=== PATIENT | male | born 1980 | race Caucasian/White ===

== ENCOUNTER 2017-02-24 21:22 | Inpatient (IN) | payer MEDICAID ==
[~2017-02-24] VITALS: Ht 182.9 cm; Wt 96.5 kg
[2017-02-24 22:07] VITALS: BP 134/76
[2017-02-24] MEDS ORDERED: ZOLPIDEM TARTRATE 10 MG TABLET PO PRN (22:15)
[2017-02-24] MEDS ORDERED: LORazepam 2 MG TABLET PO PRN (22:15)
[2017-02-24] MEDS ORDERED: HALOPERIDOL 5 MG TABLET PO PRN (22:15)
[2017-02-24] MEDS ORDERED: ZIPR40CA2 PO (23:49)
[2017-02-25 00:58] LABS: BASOPHILS % (AUTO) 0.4 % (0.0-2.0); EOSINOPHILS % (AUTO) 6.6 % (1.0-6.0); HEMATOCRIT 41.8 % (41-53); HEMOGLOBIN 13.5 g/dL (13.5-17.5); LYMPHOCYTES % (AUTO) 36.8 % (22.0-44.0); MEAN CORPUSCULAR HEMOGLOBIN 28.4 pg (26.0-34.0); MEAN CORPUSCULAR HGB CONC 32.4 G/dL (31.0-37.0); MEAN CORPUSCULAR VOLUME 88 fL (80-100); MONOCYTES # (AUTO) 0.7 K/uL (0.1-1.0); MONOCYTES % (AUTO) 8.5 % (2.0-9.0); NEUTROPHILS # (AUTO) 3.9 K/uL (1.8-7.7); NEUTROPHILS % (AUTO) 47.7 % (40.0-70.0); PLATELET COUNT (AUTO) 328 K/uL (150-450); RED BLOOD CELL COUNT(AUTO) 4.77 MIL/uL (4.50-5.90); RED CELL DISTRIBUTION WIDTH 14.2 % (11.5-14.5); WHITE BLOOD COUNT (AUTO) 8.3 K/uL (4.5-11.0)
[2017-02-25 01:05] LABS: ANION GAP 6 mmol/L (8-16); CALCIUM, TOTAL 8.5 mg/dL (8.8-10.5); CARBON DIOXIDE 27 mmol/L (22-29); CHLORIDE 107 mmol/L (98-107); CREATININE 0.75 mg/dL (0.60-1.30); GLOMERULAR FILTR. RATE CALC > 60 mL/min (>60); SODIUM SERUM 140 mmol/L (136-145); UREA NITROGEN, BLOOD 18 mg/dL (7-18)
[2017-02-25 01:11] LABS: ALANINE AMINOTRANSFERASE 32 U/L (12-78); ALBUMIN 3.2 g/dL (3.4-5.0); ASPARTATE AMINOTRANSFERASE 13 U/L (15-37); BILIRUBIN,TOTAL 0.3 mg/dL (0.1-1.0); TOTAL PROTEIN, SERUM 7.2 g/dL (6.4-8.2)
[2017-02-25 01:16] LABS: GLUCOSE COMMENT 1 Doctor Notified; GLUCOSE,POINT OF CARE 78 MG/DL (70-110)
[2017-02-25] MEDS ORDERED: PERMETHRIN 5% 60 GM CREAM TP ONE (01:45)
[2017-02-25 03:33] VITALS: BP 131/78
[2017-02-25 06:26] LABS: ALANINE AMINOTRANSFERASE 29 U/L (12-78); ALBUMIN 3.1 g/dL (3.4-5.0); ANION GAP 6 mmol/L (8-16); ASPARTATE AMINOTRANSFERASE 12 U/L (15-37); BILIRUBIN,TOTAL 0.2 mg/dL (0.1-1.0); CALCIUM, TOTAL 8.2 mg/dL (8.8-10.5); CARBON DIOXIDE 27 mmol/L (22-29); CHLORIDE 107 mmol/L (98-107); CREATININE 0.89 mg/dL (0.60-1.30); GLOMERULAR FILTR. RATE CALC > 60 mL/min (>60); POTASSIUM 3.8 mmol/L (3.5-5.1); SODIUM SERUM 140 mmol/L (136-145); TOTAL PROTEIN, SERUM 6.8 g/dL (6.4-8.2); UREA NITROGEN, BLOOD 17 mg/dL (7-18)
[2017-02-25 07:13] LABS: BASOPHILS # (AUTO) 0.03 K/uL (0.00-0.20); BASOPHILS % (AUTO) 0.4 % (0.0-2.0); EOSINOPHILS # (AUTO) 0.71 K/uL (0.00-0.70); EOSINOPHILS % (AUTO) 9.51 % (1.0-6.0); HEMATOCRIT 41.4 % (41-53); HEMOGLOBIN 13.7 g/dL (13.5-17.5); LYMPHOCYTES # (AUTO) 2.9 K/uL (1.0-4.8); LYMPHOCYTES % (AUTO) 38.4 % (22.0-44.0); MEAN CORPUSCULAR HEMOGLOBIN 29.1 pg (26.0-34.0); MEAN CORPUSCULAR VOLUME 88 fL (80-100); MONOCYTES # (AUTO) 0.7 K/uL (0.1-1.0); MONOCYTES % (AUTO) 9.4 % (2.0-9.0); NEUTROPHILS # (AUTO) 3.2 K/uL (1.8-7.7); NEUTROPHILS % (AUTO) 42.3 % (40.0-70.0); PLATELET COUNT (AUTO) 301 K/uL (150-450); RED BLOOD CELL COUNT(AUTO) 4.71 MIL/uL (4.50-5.90); RED CELL DISTRIBUTION WIDTH 14.6 % (11.5-14.5); WHITE BLOOD COUNT (AUTO) 7.5 K/uL (4.5-11.0)
[2017-02-25] MEDS: ZIPRASIDONE HCL 20 MG CAPSULE PO SCH ×2 (07:59→16:56)
[2017-02-25 09:19] VITALS: BP 127/60
[2017-02-25 17:08] VITALS: BP 102/58
[2017-02-26] MEDS: ZIPRASIDONE HCL 20 MG CAPSULE PO SCH ×2 (06:43→17:41)
[2017-02-26 08:00] VITALS: BP 113/71
[2017-02-26] MEDS ORDERED: ACETAMINOPHEN 325 MG TABLET PO PRN (12:15)
[2017-02-26] MEDS ORDERED: IBUPROFEN 600 MG TABLET PO PRN (12:15)
[2017-02-26] MEDS ORDERED: IBUPROFEN 400 MG TABLET PO PRN (12:30)
[2017-02-26] MEDS: ACETAMINOPHEN 325 MG TABLET PO PRN (14:23)
[2017-02-26 16:34] VITALS: BP 109/65
[2017-02-27] MEDS: ZIPRASIDONE HCL 20 MG CAPSULE PO SCH (06:31)
[2017-02-27 08:00] VITALS: BP 116/60
[2017-02-27] MEDS: ACETAMINOPHEN 325 MG TABLET PO PRN (09:31)
== END 2017-02-27 15:30 | disposition home or self-care (01) | DRG 750 ==
LOC: EDSTATUS 22:41 → BV PSY EVL 23:34 → 3EI 02-25 02:36
DX: F25.1 Schizoaffective disorder, depressive type (principal); R45.851 Suicidal ideations; Z59.0 Homelessness; F15.10 Other stimulant abuse, uncomplicated; M10.9 Gout, unspecified; B86 Scabies; F17.210 Nicotine dependence, cigarettes, uncomplicated; F12.90 Cannabis use, unspecified, uncomplicated; Z91.5 Personal history of self-harm; Z88.8 Allergy status to other drugs, medicaments and biological substances
CPT/HCPCS: 82962; 99285; G0480

== ENCOUNTER 2017-08-03 21:06 | Inpatient (IN) | payer MEDICAID ==
[~2017-08-03] VITALS: Ht 182.9 cm; Wt 88.0 kg
[~2017-08-03 21:06] MED LIST: ZIPR40CA2 PO
[2017-08-03 21:32] LABS: BASOPHILS % (AUTO) 0.6 % (0.0-2.0); EOSINOPHILS % (AUTO) 2.2 % (1.0-6.0); HEMATOCRIT 40.6 % (41-53); HEMOGLOBIN 13.9 g/dL (13.5-17.5); LYMPHOCYTES # (AUTO) 2.8 K/uL (1.0-4.8); LYMPHOCYTES % (AUTO) 32.3 % (22.0-44.0); MEAN CORPUSCULAR HEMOGLOBIN 30.4 pg (26.0-34.0); MEAN CORPUSCULAR HGB CONC 34.3 G/dL (31.0-37.0); MEAN CORPUSCULAR VOLUME 89 fL (80-100); MONOCYTES # (AUTO) 0.8 K/uL (0.1-1.0); MONOCYTES % (AUTO) 9.2 % (2.0-9.0); NEUTROPHILS # (AUTO) 4.8 K/uL (1.8-7.7); NEUTROPHILS % (AUTO) 55.7 % (40.0-70.0); PLATELET COUNT (AUTO) 366 K/uL (150-450); RED BLOOD CELL COUNT(AUTO) 4.57 MIL/uL (4.50-5.90); WHITE BLOOD COUNT (AUTO) 8.6 K/uL (4.5-11.0)
[2017-08-03 21:35] LABS: ANION GAP 6 mmol/L (8-16); CALCIUM, TOTAL 8.5 mg/dL (8.8-10.5); CARBON DIOXIDE 29 mmol/L (22-29); CHLORIDE 104 mmol/L (98-107); GLOMERULAR FILTR. RATE CALC > 60 mL/min (>60); POTASSIUM 3.7 mmol/L (3.5-5.1); SODIUM SERUM 139 mmol/L (136-145); UREA NITROGEN, BLOOD 15 mg/dL (7-18)
[2017-08-03 21:43] LABS: ALANINE AMINOTRANSFERASE 87 U/L (12-78); ALBUMIN 3.4 g/dL (3.4-5.0); ASPARTATE AMINOTRANSFERASE 40 U/L (15-37); BILIRUBIN,TOTAL 0.6 mg/dL (0.1-1.0); TOTAL PROTEIN, SERUM 8.4 g/dL (6.4-8.2)
[2017-08-03] MEDS ORDERED: ZOLPIDEM TARTRATE 10 MG TABLET PO PRN (21:45)
[2017-08-03] MEDS ORDERED: HALOPERIDOL 5 MG TABLET PO PRN (21:45)
[2017-08-04 01:35] LABS: APPEARANCE,URINE CLOUDY (CLEAR); GLUCOSE, URINE (UA) NEGATIVE (NEGATIVE); KETONES,URINE TRACE mg/dL (NEGATIVE); LEUKOCYTE ESTERASE ,URINE NEGATIVE (NEGATIVE); OCCULT BLOOD,URINE NEGATIVE (NEGATIVE); PROTEIN,URINE NEGATIVE (NEGATIVE)
[2017-08-04 01:37] LABS: ADD UA MICROSCOPIC NO
[2017-08-04 02:18] VITALS: BP 119/54
[2017-08-04 02:25] VITALS: BP 119/54
[2017-08-04] MEDS ORDERED: PNEUMOCOCCAL VACCINE POLYVALENT 0.5 ML VIAL [PPSV23] IM ONE (04:30)
[2017-08-04 08:30] VITALS: BP 88/63
[2017-08-04 17:04] VITALS: BP 120/71
[2017-08-04] MEDS: CarBAMazepine 200 MG TABLET PO SCH (17:30)
[2017-08-04] MEDS: ZIPRASIDONE HCL 20 MG CAPSULE PO SCH (18:30)
[2017-08-05] MEDS: ZIPRASIDONE HCL 20 MG CAPSULE PO SCH ×2 (06:43→16:35)
[2017-08-05 08:48] VITALS: BP 116/74
[2017-08-05] MEDS: CarBAMazepine 200 MG TABLET PO SCH ×2 (10:20→16:35)
[2017-08-05] MEDS ORDERED: ACETAMINOPHEN 500 MG TABLET PO PRN (12:00)
[2017-08-05 12:56] VITALS: BP 121/65
[2017-08-05 15:04] VITALS: BP 112/64
[2017-08-05] MEDS: IBUPROFEN 600 MG TABLET PO PRN (15:04)
[2017-08-05] MEDS: LORazepam 2 MG TABLET PO PRN (16:34)
[2017-08-05 20:11] VITALS: BP 121/72
[2017-08-06] MEDS: ZIPRASIDONE HCL 20 MG CAPSULE PO SCH ×2 (06:55→16:56)
[2017-08-06] MEDS: CarBAMazepine 200 MG TABLET PO SCH ×2 (08:37→16:56)
[2017-08-06 09:26] VITALS: BP 131/77
[2017-08-06 12:08] VITALS: BP 115/78
[2017-08-06] MEDS: IBUPROFEN 600 MG TABLET PO PRN (12:08)
[2017-08-06 17:09] VITALS: BP 108/60
[2017-08-07 02:20] VITALS: BP 121/66
[2017-08-07] MEDS: ZIPRASIDONE HCL 20 MG CAPSULE PO SCH ×2 (06:41→17:41)
[2017-08-07 07:40] LABS: CHOL/HDL RATIO 4.2 (4.2-7.3); CREATINE KINASE, TOTAL 41 U/L (39-308); THYROID STIMULATING HORMONE 1.13 uIU/mL (0.36-3.74)
[2017-08-07 08:35] LABS: HEMOGLOBIN A1C 4.7 % (4.5-6.2)
[2017-08-07] MEDS: CarBAMazepine 200 MG TABLET PO SCH ×2 (09:30→15:57)
[2017-08-07 09:50] VITALS: BP 127/59
[2017-08-07] MEDS: IBUPROFEN 600 MG TABLET PO PRN (14:21)
[2017-08-07 16:15] VITALS: BP 117/73
[2017-08-07] MEDS: LORazepam 2 MG TABLET PO PRN (20:12)
[2017-08-08 04:19] LABS: HEPATITIS Bs ANTIGEN SCREEN P Negative (Negative); HEPATITIS C AB SCREEN 0.2 s/co ratio (0.0-0.9)
[2017-08-08] MEDS: ZIPRASIDONE HCL 20 MG CAPSULE PO SCH (06:50)
[2017-08-08 08:50] VITALS: BP 117/58
[2017-08-08] MEDS: CarBAMazepine 200 MG TABLET PO SCH (09:33)
[2017-08-08] MEDS ORDERED: CARB200T6 PO (10:54)
== END 2017-08-08 15:45 | disposition home or self-care (01) | DRG 750 ==
LOC: EMS 21:07 → 3EI 08-04 00:04 → EMS 08-04 00:06 → 3EI 08-05 16:47
PROVIDERS: ADMIT Psychiatry & Neurology Child & Adolescent Psychiatry; ATTEND Psychiatry & Neurology Child & Adolescent Psychiatry
DX: F25.1 Schizoaffective disorder, depressive type (principal); E11.65 Type 2 diabetes mellitus with hyperglycemia; R45.851 Suicidal ideations; I10 Essential (primary) hypertension; B19.20 Unspecified viral hepatitis C without hepatic coma; F41.9 Anxiety disorder, unspecified; F12.90 Cannabis use, unspecified, uncomplicated; F17.210 Nicotine dependence, cigarettes, uncomplicated; F15.90 Other stimulant use, unspecified, uncomplicated; K02.9 Dental caries, unspecified; M10.9 Gout, unspecified; Z59.0 Homelessness; Z88.8 Allergy status to other drugs, medicaments and biological substances; Z91.19 Patient's noncompliance with other medical treatment and regimen; Z71.6 Tobacco abuse counseling; Z71.51 Drug abuse counseling and surveillance of drug abuser
CPT/HCPCS: 80074; 82306; 82607; 82746; 83036; 84439; 84443; 99285; G0480

== ENCOUNTER 2017-09-01 02:14 | Inpatient (IN) | payer MEDICAID ==
[~2017-09-01] VITALS: Ht 182.9 cm; Wt 88.7 kg
[~2017-09-01 02:14] MED LIST changes: +CARB200T6 PO
[2017-09-01 02:51] LABS: BASOPHILS # (AUTO) 0.04 K/uL (0.00-0.20); BASOPHILS % (AUTO) 0.5 % (0.0-2.0); EOSINOPHILS # (AUTO) 0.21 K/uL (0.00-0.70); EOSINOPHILS % (AUTO) 2.73 % (1.0-6.0); HEMATOCRIT 42.5 % (41-53); HEMOGLOBIN 14.2 g/dL (13.5-17.5); LYMPHOCYTES % (AUTO) 38.6 % (22.0-44.0); MEAN CORPUSCULAR HEMOGLOBIN 30.2 pg (26.0-34.0); MEAN CORPUSCULAR HGB CONC 33.3 G/dL (31.0-37.0); MEAN CORPUSCULAR VOLUME 91 fL (80-100); MONOCYTES # (AUTO) 0.5 K/uL (0.1-1.0); MONOCYTES % (AUTO) 5.9 % (2.0-9.0); NEUTROPHILS # (AUTO) 4.1 K/uL (1.8-7.7); NEUTROPHILS % (AUTO) 52.4 % (40.0-70.0); PLATELET COUNT (AUTO) 346 K/uL (150-450); RED BLOOD CELL COUNT(AUTO) 4.69 MIL/uL (4.50-5.90); RED CELL DISTRIBUTION WIDTH 15.3 % (11.5-14.5); WHITE BLOOD COUNT (AUTO) 7.8 K/uL (4.5-11.0)
[2017-09-01 02:57] LABS: ANION GAP 2 mmol/L (8-16); CALCIUM, TOTAL 8.5 mg/dL (8.8-10.5); CARBON DIOXIDE 33 mmol/L (22-29); CHLORIDE 102 mmol/L (98-107); CREATININE 0.76 mg/dL (0.60-1.30); GLOMERULAR FILTR. RATE CALC > 60 mL/min (>60); POTASSIUM 4.7 mmol/L (3.5-5.1); SODIUM SERUM 137 mmol/L (136-145); UREA NITROGEN, BLOOD 12 mg/dL (7-18)
[2017-09-01 03:03] LABS: ALANINE AMINOTRANSFERASE 50 U/L (12-78); ALBUMIN 3.1 g/dL (3.4-5.0); ASPARTATE AMINOTRANSFERASE 32 U/L (15-37); BILIRUBIN,TOTAL 0.3 mg/dL (0.1-1.0); TOTAL PROTEIN, SERUM 7.6 g/dL (6.4-8.2)
[2017-09-01] MEDS ORDERED: HALOPERIDOL 5 MG TABLET PO PRN (05:15)
[2017-09-01] MEDS ORDERED: LORazepam 2 MG TABLET PO PRN (05:15)
[2017-09-01] MEDS ORDERED: ZOLPIDEM TARTRATE 10 MG TABLET PO PRN (05:15)
[2017-09-01 06:08] LABS: APPEARANCE,URINE CLOUDY (CLEAR); GLUCOSE, URINE (UA) NEGATIVE (NEGATIVE); KETONES,URINE NEGATIVE (NEGATIVE); LEUKOCYTE ESTERASE ,URINE NEGATIVE (NEGATIVE); OCCULT BLOOD,URINE NEGATIVE (NEGATIVE); PROTEIN,URINE NEGATIVE (NEGATIVE)
[2017-09-01 06:09] LABS: ADD UA MICROSCOPIC NO
[2017-09-01 07:02] VITALS: BP 135/74
[2017-09-01 08:18] VITALS: BP 123/66
[2017-09-01] MEDS: NICOTINE 14 MG/24 HOUR PATCH TD SCH (09:20)
[2017-09-01 16:32] VITALS: BP 124/78
[2017-09-01] MEDS: CarBAMazepine 200 MG TABLET PO SCH (17:21)
[2017-09-01] MEDS: ZIPRASIDONE HCL 20 MG CAPSULE PO SCH (17:21)
[2017-09-02 02:53] VITALS: BP 141/97
[2017-09-02 06:53] LABS: BASOPHILS % (AUTO) 0.4 % (0.0-2.0); EOSINOPHILS % (AUTO) 2.1 % (1.0-6.0); HEMATOCRIT 42.7 % (41-53); HEMOGLOBIN 14.4 g/dL (13.5-17.5); LYMPHOCYTES # (AUTO) 2.1 K/uL (1.0-4.8); LYMPHOCYTES % (AUTO) 28.8 % (22.0-44.0); MEAN CORPUSCULAR HEMOGLOBIN 30.4 pg (26.0-34.0); MEAN CORPUSCULAR HGB CONC 33.8 G/dL (31.0-37.0); MEAN CORPUSCULAR VOLUME 90 fL (80-100); MONOCYTES # (AUTO) 0.5 K/uL (0.1-1.0); MONOCYTES % (AUTO) 6.8 % (2.0-9.0); NEUTROPHILS # (AUTO) 4.6 K/uL (1.8-7.7); NEUTROPHILS % (AUTO) 61.9 % (40.0-70.0); PLATELET COUNT (AUTO) 329 K/uL (150-450); RED BLOOD CELL COUNT(AUTO) 4.73 MIL/uL (4.50-5.90); RED CELL DISTRIBUTION WIDTH 15.1 % (11.5-14.5); WHITE BLOOD COUNT (AUTO) 7.4 K/uL (4.5-11.0)
[2017-09-02] MEDS: ZIPRASIDONE HCL 20 MG CAPSULE PO SCH (07:11)
[2017-09-02 07:28] LABS: ALANINE AMINOTRANSFERASE 56 U/L (12-78); ALBUMIN 3.1 g/dL (3.4-5.0); ANION GAP 5 mmol/L (8-16); ASPARTATE AMINOTRANSFERASE 28 U/L (15-37); BILIRUBIN,TOTAL 0.4 mg/dL (0.1-1.0); CALCIUM, TOTAL 8.6 mg/dL (8.8-10.5); CARBON DIOXIDE 31 mmol/L (22-29); CHLORIDE 102 mmol/L (98-107); CREATININE 0.77 mg/dL (0.60-1.30); GLOMERULAR FILTR. RATE CALC > 60 mL/min (>60); POTASSIUM 4.4 mmol/L (3.5-5.1); SODIUM SERUM 138 mmol/L (136-145); TOTAL PROTEIN, SERUM 7.1 g/dL (6.4-8.2); UREA NITROGEN, BLOOD 10 mg/dL (7-18)
[2017-09-02 08:00] VITALS: BP 111/71
[2017-09-02] MEDS: CarBAMazepine 200 MG TABLET PO SCH (09:41)
[2017-09-02] MEDS: NICOTINE 14 MG/24 HOUR PATCH TD SCH (09:41)
[2017-09-02 16:23] VITALS: BP 115/79
[2017-09-02] MEDS ORDERED: ZIPR20CA2 PO (16:43)
[2017-09-02] MEDS ORDERED: CARB200T6 PO (16:44)
== END 2017-09-02 17:10 | disposition home or self-care (01) | DRG 750 ==
LOC: EMS 02:15 → 3EI 05:15
PROVIDERS: ADMIT Psychiatry & Neurology Child & Adolescent Psychiatry; ATTEND Psychiatry & Neurology Child & Adolescent Psychiatry
DX: F25.1 Schizoaffective disorder, depressive type (principal); R45.851 Suicidal ideations; Z91.14 Patient's other noncompliance with medication regimen; I10 Essential (primary) hypertension; F31.9 Bipolar disorder, unspecified; F41.9 Anxiety disorder, unspecified; M10.9 Gout, unspecified; F17.210 Nicotine dependence, cigarettes, uncomplicated; F12.90 Cannabis use, unspecified, uncomplicated; B19.20 Unspecified viral hepatitis C without hepatic coma; R21 Rash and other nonspecific skin eruption; R73.03 Prediabetes; B15.9 Hepatitis A without hepatic coma; Z79.899 Other long term (current) drug therapy; Z88.8 Allergy status to other drugs, medicaments and biological substances
CPT/HCPCS: 84439; 84443; 87081; 99285; G0480

== ENCOUNTER 2017-10-10 22:43 | Inpatient (IN) | payer MEDICAID ==
[~2017-10-10] VITALS: Ht 175.3 cm; Wt 86.6 kg
[~2017-10-10 22:43] MED LIST changes: +ZIPR20CA2 PO; -ZIPR40CA2 PO
[2017-10-10 23:00] LABS: BASOPHILS # (AUTO) 0.04 K/uL (0.00-0.20); BASOPHILS % (AUTO) 0.5 % (0.0-2.0); EOSINOPHILS # (AUTO) 0.19 K/uL (0.00-0.70); EOSINOPHILS % (AUTO) 2.24 % (1.0-6.0); HEMATOCRIT 42.5 % (41-53); HEMOGLOBIN 14.1 g/dL (13.5-17.5); LYMPHOCYTES # (AUTO) 3.3 K/uL (1.0-4.8); LYMPHOCYTES % (AUTO) 40.1 % (22.0-44.0); MEAN CORPUSCULAR HEMOGLOBIN 30.3 pg (26.0-34.0); MEAN CORPUSCULAR HGB CONC 33.3 G/dL (31.0-37.0); MEAN CORPUSCULAR VOLUME 91 fL (80-100); MONOCYTES # (AUTO) 0.5 K/uL (0.1-1.0); MONOCYTES % (AUTO) 6.3 % (2.0-9.0); NEUTROPHILS # (AUTO) 4.2 K/uL (1.8-7.7); NEUTROPHILS % (AUTO) 50.9 % (40.0-70.0); PLATELET COUNT (AUTO) 377 K/uL (150-450); RED BLOOD CELL COUNT(AUTO) 4.67 MIL/uL (4.50-5.90); RED CELL DISTRIBUTION WIDTH 14.1 % (11.5-14.5); WHITE BLOOD COUNT (AUTO) 8.3 K/uL (4.5-11.0)
[2017-10-10 23:02] LABS: GLUCOSE COMMENT 2 Doctor Notified; GLUCOSE,POINT OF CARE 67 MG/DL (70-110)
[2017-10-10 23:14] LABS: ANION GAP 5 mmol/L (8-16); CALCIUM, TOTAL 8.8 mg/dL (8.8-10.5); CARBON DIOXIDE 31 mmol/L (22-29); CHLORIDE 102 mmol/L (98-107); CREATININE 1.03 mg/dL (0.60-1.30); GLOMERULAR FILTR. RATE CALC > 60 mL/min (>60); POTASSIUM 4.4 mmol/L (3.5-5.1); SODIUM SERUM 138 mmol/L (136-145); UREA NITROGEN, BLOOD 18 mg/dL (7-18)
[2017-10-10 23:30] LABS: ALANINE AMINOTRANSFERASE 30 U/L (12-78); ALBUMIN 3.5 g/dL (3.4-5.0); ASPARTATE AMINOTRANSFERASE 14 U/L (15-37); BILIRUBIN,TOTAL 0.2 mg/dL (0.1-1.0); TOTAL PROTEIN, SERUM 7.9 g/dL (6.4-8.2)
[2017-10-11] MEDS ORDERED: ZOLPIDEM TARTRATE 10 MG TABLET PO PRN (00:15)
[2017-10-11] MEDS ORDERED: HALOPERIDOL 5 MG TABLET PO PRN (00:15)
[2017-10-11 02:17] LABS: GLUCOSE,POINT OF CARE 122 MG/DL (70-110)
[2017-10-11] MEDS ORDERED: PNEUMOCOCCAL VACCINE POLYVALENT 0.5 ML VIAL [PPSV23] IM ONE (15:00)
[2017-10-11 15:10] LABS: APPEARANCE,URINE CLEAR (CLEAR); GLUCOSE, URINE (UA) NEGATIVE (NEGATIVE); KETONES,URINE NEGATIVE (NEGATIVE); LEUKOCYTE ESTERASE ,URINE NEGATIVE (NEGATIVE); OCCULT BLOOD,URINE NEGATIVE (NEGATIVE); PH,URINE 7.5 (5.0-8.0); PROTEIN,URINE NEGATIVE (NEGATIVE)
[2017-10-11 15:12] LABS: ADD UA MICROSCOPIC NO
[2017-10-11] MEDS: NICOTINE 14 MG/24 HOUR PATCH TD SCH (16:44)
[2017-10-11] MEDS ORDERED: DEXTROSE 50%-WATER 25 GM/50 ML SYG IVP PRN (17:00)
[2017-10-11] MEDS ORDERED: INSULIN ASPART 100 UNITS/ML SQ PRN (17:00)
[2017-10-11 17:32] LABS: GLUCOSE,POINT OF CARE 72 MG/DL (70-110)
[2017-10-11 18:51] VITALS: BP 115/57
[2017-10-12 06:07] LABS: GLUCOSE,POINT OF CARE 110 MG/DL (70-110)
[2017-10-12 07:11] LABS: HEMOGLOBIN A1C 5.3 % (4.5-6.2)
[2017-10-12 07:19] LABS: CHOL/HDL RATIO 3.6 (4.2-7.3)
[2017-10-12 08:00] VITALS: BP 125/77
[2017-10-12] MEDS: NICOTINE 14 MG/24 HOUR PATCH TD SCH (09:00)
[2017-10-12] MEDS: ZIPRASIDONE HCL 20 MG CAPSULE PO SCH (16:52)
[2017-10-12] MEDS: CarBAMazepine 200 MG TABLET PO SCH (16:52)
[2017-10-12] MEDS: LORazepam 2 MG TABLET PO PRN (18:32)
[2017-10-13] MEDS: ZIPRASIDONE HCL 20 MG CAPSULE PO SCH ×2 (06:58→16:25)
[2017-10-13 08:41] VITALS: BP 121/77
[2017-10-13] MEDS: NICOTINE 14 MG/24 HOUR PATCH TD SCH (09:00)
[2017-10-13] MEDS: CarBAMazepine 200 MG TABLET PO SCH ×3 (09:00→16:27)
[2017-10-13 17:26] VITALS: BP 144/76
[2017-10-14] MEDS: ZIPRASIDONE HCL 20 MG CAPSULE PO SCH ×2 (06:38→17:28)
[2017-10-14 08:46] VITALS: BP 140/90
[2017-10-14] MEDS: NICOTINE 14 MG/24 HOUR PATCH TD SCH (09:00)
[2017-10-14] MEDS: CarBAMazepine 200 MG TABLET PO SCH ×2 (09:09→17:28)
[2017-10-14 17:08] VITALS: BP 113/88
[2017-10-15] MEDS: ZIPRASIDONE HCL 20 MG CAPSULE PO SCH ×2 (07:17→17:15)
[2017-10-15 08:15] VITALS: BP 133/67
[2017-10-15] MEDS: NICOTINE 14 MG/24 HOUR PATCH TD SCH (09:00)
[2017-10-15] MEDS: CarBAMazepine 200 MG TABLET PO SCH ×2 (09:50→17:15)
[2017-10-15] MEDS: LORazepam 2 MG TABLET PO PRN (14:07)
[2017-10-15 16:50] VITALS: BP 129/67
[2017-10-15 17:00] VITALS: BP 127/68
[2017-10-16] MEDS: LORazepam 2 MG TABLET PO PRN (06:58)
[2017-10-16] MEDS: ZIPRASIDONE HCL 20 MG CAPSULE PO SCH (07:02)
[2017-10-16] MEDS: NICOTINE 14 MG/24 HOUR PATCH TD SCH ×2 (09:00→10:31)
[2017-10-16 09:03] VITALS: BP 133/94
[2017-10-16] MEDS: CarBAMazepine 200 MG TABLET PO SCH (10:31)
== END 2017-10-16 14:00 | disposition home or self-care (01) | DRG 750 ==
LOC: EMS 22:45 → AHU 10-11 11:44 → 3EI 10-11 17:01
DX: F25.1 Schizoaffective disorder, depressive type (principal); E11.649 Type 2 diabetes mellitus with hypoglycemia without coma; R45.851 Suicidal ideations; F31.9 Bipolar disorder, unspecified; I10 Essential (primary) hypertension; F41.9 Anxiety disorder, unspecified; M10.9 Gout, unspecified; B15.9 Hepatitis A without hepatic coma; F17.210 Nicotine dependence, cigarettes, uncomplicated; F12.10 Cannabis abuse, uncomplicated; F15.10 Other stimulant abuse, uncomplicated; Z88.8 Allergy status to other drugs, medicaments and biological substances; Z79.899 Other long term (current) drug therapy; Z28.21 Immunization not carried out because of patient refusal
CPT/HCPCS: 82962; 83036; 99285; G0480